=== PATIENT | male | born 1965 | race Caucasian/White ===

== ENCOUNTER 2016-11-02 10:34 | Outpatient (CLI) | payer MEDICAID | END 2016-11-02 10:35 | disposition home or self-care (01) | DX: M19.042 Primary osteoarthritis, left hand (principal) ==

== ENCOUNTER 2017-09-12 16:24 | Outpatient (CLI) | payer MEDICAID ==
--- NOTE | 2017-09-13 13:46 | XRAY Report ---
TWO VIEW CHEST: 09/13/2017 CLINICAL INDICATION: Productive cough, fever. FINDINGS: Frontal and lateral views of the chest demonstrate a normal cardiac silhouette. The lungs are clear. No effusion or pneumothorax is present. IMPRESSION: NORMAL CHEST. TD: 09/13/2017 13:46
== END 2017-09-12 16:25 | disposition home or self-care (01) ==
LOC: DI.N 16:24
PROVIDERS: ATTEND Physician Assistant Medical
DX: R05 Cough (principal)
CPT/HCPCS: 71046

== ENCOUNTER 2018-01-30 07:00 | Outpatient (CLI) | payer OTHER | END 2018-01-30 07:01 | disposition home or self-care (01) | LOC: LAB.R 07:00 | DX: Z53.9 Procedure and treatment not carried out, unspecified reason (principal) ==

== ENCOUNTER 2018-02-13 11:26 | Outpatient (CLI) | payer MEDICAID ==
[2018-02-13 19:14] LABS: BASOPHILS # (AUTO) 0.1 10^3/uL (0.0-0.1); BASOPHILS % (AUTO) 0.7 %; EOSINOPHILS % (AUTO) 0.1 %; HGB - HEMOGLOBIN 14.9 g/dL (14.0-18.0); LYMPHOCYTES # (AUTO) 1.7 10^3/uL (1.5-3.5); LYMPHOCYTES % (AUTO) 16.5 %; MEAN CORPUSCULAR HEMOGLOBIN 28.8 pg (27.0-31.0); MEAN CORPUSCULAR HGB CONC 32.2 g/dL (32.0-36.0); MEAN CORPUSCULAR VOLUME 89.5 fL (80.0-94.0); MONOCYTES # (AUTO) 0.9 10^3/uL (0.0-1.0); MONOCYTES % (AUTO) 8.7 %; NEUTROPHILS # (AUTO) 7.5 10^3/uL (1.5-6.6); PLT - PLATELET COUNT 198 10^3/uL (130-450); RED BLOOD COUNT 5.16 10^6/uL (4.70-6.10); RED CELL DISTRIBUTION WIDTH 13.7 % (12.0-15.0); WHITE BLOOD COUNT 10.1 x10^3/uL (4.8-10.8)
[2018-02-13 19:29] LABS: BILIRUBIN,URINE NEGATIVE (NEGATIVE); GLUCOSE, URINE (UA) NEGATIVE (NEGATIVE); KETONES,URINE (UA) NEGATIVE (NEGATIVE); LEUKOCYTE ESTERASE, URINE SMALL (NEGATIVE); NITRITE,URINE NEGATIVE (NEGATIVE); OCCULT BLOOD,URINE SMALL (NEGATIVE); PROTEIN,URINE NEGATIVE (NEGATIVE); UROBILINOGEN,URINE 0.2 (NORMAL) E.U./dL (NORMAL)
[2018-02-13 19:39] LABS: ALBUMIN/GLOBULIN RATIO 1.1 (1.0-2.2); BILIRUBIN,TOTAL 0.7 mg/dL (0.2-1.0); CALCIUM 9.3 mg/dL (8.5-10.3); TOTAL PROTEIN 7.6 g/dL (6.7-8.2)
[2018-02-13 19:42] LABS: CLARITY,URINE CLEAR (CLEAR)
[2018-02-13 20:09] LABS: BACTERIA,URINE None Seen /HPF (None Seen); RBC,URINE 0-5 /HPF (0-5); SQUAMOUS EPITHELIAL CELL,UR NONE SEEN (<= Few)
== END 2018-02-13 11:27 | disposition home or self-care (01) ==
LOC: LAB.N 11:26
PROVIDERS: ATTEND Nurse Practitioner
DX: R36.1 Hematospermia (principal)
CPT/HCPCS: 36415; 80053; 81001; 85025; 87086

== ENCOUNTER 2018-02-14 11:20 | Outpatient (CLI) | payer MEDICAID | END 2018-02-14 11:21 | disposition home or self-care (01) | LOC: LAB.R 11:20 | PROVIDERS: ATTEND Nurse Practitioner | DX: R36.1 Hematospermia (principal) | CPT/HCPCS: 87491; 87591 ==

== ENCOUNTER 2019-09-11 10:58 | Outpatient (CLI) | payer MEDICAID ==
--- NOTE | 2019-09-11 17:42 | XRAY Report ---
Reason: CHEST PAIN Procedure Date: 09/11/2019 Accession Number: [id number] / [id number] Procedure: XRN - Chest 2 View X-Ray CPT Code: 23846 Final Report FULL RESULT: EXAM: CHEST RADIOGRAPHY EXAM DATE: 09/11/2019 11:29 AM. CLINICAL HISTORY: Chest pain. COMPARISON: Chest radiograph from 09/12/2017. TECHNIQUE: 2 views. FINDINGS: Lungs/Pleura: No focal airspace opacity. No pleural effusion or pneumothorax. Mediastinum: Cardiomediastinal silhouette is within normal limits. Pulmonary vasculature is unremarkable. Other: None. IMPRESSION: No acute cardiopulmonary abnormality. RADIA
== END 2019-09-11 10:59 | disposition home or self-care (01) ==
LOC: DI.N 10:58
PROVIDERS: ATTEND Family Medicine
DX: R07.9 Chest pain, unspecified (principal)
CPT/HCPCS: 36415; 71046; 80053; 80061; 81599; 82553; 83721; 84443; 84484; 85025; 85379

== ENCOUNTER 2019-09-11 11:37 | Outpatient (CLI) | payer MEDICAID, OTHER ==
[2019-09-11 18:22] LABS: BASOPHILS # (AUTO) 0.1 10^3/uL (0.0-0.1); BASOPHILS % (AUTO) 1.7 %; HGB - HEMOGLOBIN 15.8 g/dL (14.0-18.0); LYMPHOCYTES # (AUTO) 1.6 10^3/uL (1.5-3.5); LYMPHOCYTES % (AUTO) 30.2 %; MEAN CORPUSCULAR HEMOGLOBIN 27.4 pg (27.0-31.0); MEAN CORPUSCULAR VOLUME 88.4 fL (80.0-94.0); MEAN PLATELET VOLUME 12.3 fL (7.4-11.4); MONOCYTES # (AUTO) 0.5 10^3/uL (0.0-1.0); MONOCYTES % (AUTO) 10.1 %; NEUTROPHILS # (AUTO) 3.1 10^3/uL (1.5-6.6); NEUTROPHILS % (AUTO) 57.8 %; PLT - PLATELET COUNT 200 10^3/uL (130-450); RED BLOOD COUNT 5.77 10^6/uL (4.70-6.10); RED CELL DISTRIBUTION WIDTH 13.4 % (12.0-15.0); WHITE BLOOD COUNT 5.3 x10^3/uL (4.8-10.8)
[2019-09-11 18:56] LABS: ALBUMIN 4.3 g/dL (3.2-5.5); ALBUMIN/GLOBULIN RATIO 1.5 (1.0-2.2); ALKALINE PHOSPHATASE 39 IU/L (42-121); ALT ALANINE AMINOTRANSFERASE 28 IU/L (10-60); AST ASPARTATE AMINOTRANSFERASE 21 IU/L (10-42); BILIRUBIN,TOTAL 0.8 mg/dL (0.2-1.0); BUN - BLOOD UREA NITROGEN 14 mg/dL (6-20); CALCIUM 8.9 mg/dL (8.5-10.3); CARBON DIOXIDE - CO2 28 mmol/L (21-32); CHLORIDE 104 mmol/L (101-111); CHOL/HDL RATIO 4.7 (<5.0); CHOLESTEROL 219 mg/dL; CREATININE 0.9 mg/dL (0.6-1.2); GFR - MDRD 87 (>89); GLUCOSE 81 mg/dL (70-100); HDL CHOLESTEROL 47 mg/dL; LDL CHOLESTEROL,CALCULATED 149 mg/dL; LDL/HDL RATIO 3.2 (<3.6); SODIUM 139 mmol/L (135-145); TOTAL PROTEIN 7.2 g/dL (6.7-8.2); VLDL CHOLESTEROL 23 mg/dL
== END 2019-09-11 23:59 | disposition home or self-care (01) ==
LOC: LAB.N 11:37
PROVIDERS: ATTEND Family Medicine
DX: R07.9 Chest pain, unspecified (principal)
CPT/HCPCS: 36415; 80053; 80061; 81599; 82553; 83721; 84443; 84484; 85025; 85379

== ENCOUNTER 2020-09-29 08:00 | Outpatient (CLI) | payer OTHER ==
[2020-09-29 11:51] LABS: BASOPHILS # (AUTO) 0.1 10^3/uL (0.0-0.1); BASOPHILS % (AUTO) 1.1 %; EOSINOPHILS % (AUTO) 0.4 %; HGB - HEMOGLOBIN 15.5 g/dL (14.0-18.0); LYMPHOCYTES # (AUTO) 1.8 10^3/uL (1.5-3.5); LYMPHOCYTES % (AUTO) 34.4 %; MEAN CORPUSCULAR HEMOGLOBIN 28.5 pg (27.0-31.0); MEAN CORPUSCULAR HGB CONC 32.2 g/dL (32.0-36.0); MEAN CORPUSCULAR VOLUME 88.6 fL (80.0-94.0); MEAN PLATELET VOLUME 11.8 fL (7.4-11.4); MONOCYTES # (AUTO) 0.5 10^3/uL (0.0-1.0); MONOCYTES % (AUTO) 9.4 %; NEUTROPHILS # (AUTO) 2.8 10^3/uL (1.5-6.6); NEUTROPHILS % (AUTO) 54.3 %; PLT - PLATELET COUNT 196 10^3/uL (130-450); RED BLOOD COUNT 5.44 10^6/uL (4.70-6.10); RED CELL DISTRIBUTION WIDTH 12.6 % (12.0-15.0); WHITE BLOOD COUNT 5.2 x10^3/uL (4.8-10.8)
[2020-09-29 13:24] LABS: ALBUMIN 4.2 g/dL (3.2-5.5); ALBUMIN/GLOBULIN RATIO 1.4 (1.0-2.2); ALKALINE PHOSPHATASE 39 IU/L (42-121); ALT ALANINE AMINOTRANSFERASE 25 IU/L (10-60); AST ASPARTATE AMINOTRANSFERASE 22 IU/L (10-42); BILIRUBIN,TOTAL 0.6 mg/dL (0.2-1.0); BUN - BLOOD UREA NITROGEN 12 mg/dL (6-20); CALCIUM 9.5 mg/dL (8.5-10.3); CARBON DIOXIDE - CO2 25 mmol/L (21-32); CHLORIDE 105 mmol/L (101-111); CHOL/HDL RATIO 4.4 (<5.0); CHOLESTEROL 239 mg/dL; GLUCOSE 93 mg/dL (70-100); HDL CHOLESTEROL 54 mg/dL; LDL CHOLESTEROL,CALCULATED 169 mg/dL; LDL/HDL RATIO 3.1 (<3.6); TOTAL PROTEIN 7.2 g/dL (6.7-8.2); VLDL CHOLESTEROL 16 mg/dL
== END 2020-09-29 23:59 | disposition home or self-care (01) ==
LOC: LAB.WCP 08:00
PROVIDERS: ATTEND Family Medicine
DX: R07.9 Chest pain, unspecified (principal); E78.5 Hyperlipidemia, unspecified; Z12.5 Encounter for screening for malignant neoplasm of prostate
CPT/HCPCS: 36415; 80053; 80061; 83721; 84153; 85025

== ENCOUNTER 2020-11-10 07:49 | Outpatient (CLI) | payer OTHER ==
--- NOTE | 2020-11-10 11:43 | CARDIAC PROCEDURE NOTE ---
DATE OF SERVICE: 11/10/2020 Physician: Jammie Hathaway MD, [facility] INDICATION: Chest pain, hyperlipidemia. CARDIAC RISK FACTORS: Hyperlipidemia, male gender. PROCEDURE: After signing informed consent, the patient underwent a Geronimo- protocol treadmill stress test. There was no cardiac imaging ordered with this test. RESTING HEART RATE: 72. PEAK HEART RATE: 148 (98% predicted maximum heart rate for age). RESTING BLOOD PRESSURE: 128/97. PEAK BLOOD PRESSURE: 153/73. The patient exercised for 7 minutes and 45 seconds on a Geronimo-protocol treadmill stress test. He achieved a peak heart rate of 148 (90% predicted maximum heart rate for age) and 9.75 METS. The patient rated his perceived exertion at 15/20 on the Jesika scale at peak. The patient had mild shortness of breath at peak, he had no chest pain during exercise. Oxygen saturation was 95-98% on room air throughout the test. RESTING EKG: Normal sinus rhythm, rare PAC, otherwise within normal limits. EKG AT PEAK: Frequent PACs and atrial trigeminy noted, one PVC seen, no ischemic ST segment or T-wave changes developed. SUMMARY: 1. Normal resting EKG. 2. Good exercise tolerance. 3. Frequent premature atrial contractions are seen with exercise, which were asymptomatic. 4. No ischemic changes seen by EKG criteria. IMPRESSION: 1. Normal stress test, evaluating for coronary disease. 2. PACs noted. 3. This patient's cardiac risk is: Low. cc: Emili Sarmiento DO TD: 11/10/2020 11:41 [facility]
== END 2020-11-10 07:50 | disposition home or self-care (01) ==
LOC: DI 07:49
PROVIDERS: ATTEND Family Medicine
DX: R07.9 Chest pain, unspecified (principal); E78.5 Hyperlipidemia, unspecified

== ENCOUNTER 2023-05-11 08:45 | Outpatient (CLI) | payer BC ==
[2023-05-11 09:21] LABS: HCT - HEMATOCRIT 45.6 % (42.0-52.0); HGB - HEMOGLOBIN 15.2 g/dL (14.0-18.0); MEAN CORPUSCULAR HEMOGLOBIN 29.5 pg (27.0-31.0); MEAN CORPUSCULAR HGB CONC 33.3 g/dL (32.0-36.0); MEAN CORPUSCULAR VOLUME 88.4 fL (80.0-94.0); RED BLOOD COUNT 5.16 10^6/uL (4.70-6.10); RED CELL DISTRIBUTION WIDTH 12.6 % (12.0-15.0); WHITE BLOOD COUNT 5.3 x10^3/uL (4.8-10.8)
[2023-05-11 09:39] LABS: ALBUMIN 4.3 g/dL (3.2-5.5); ALBUMIN/GLOBULIN RATIO 1.5 (1.0-2.2); ALKALINE PHOSPHATASE 48 IU/L (42-121); ALT ALANINE AMINOTRANSFERASE 18 IU/L (10-60); AST ASPARTATE AMINOTRANSFERASE 19 IU/L (10-42); BILIRUBIN,TOTAL 0.9 mg/dL (0.2-1.0); BUN - BLOOD UREA NITROGEN 13 mg/dL (6-20); CALCIUM 9.6 mg/dL (8.5-10.3); CARBON DIOXIDE - CO2 28 mmol/L (21-32); CHLORIDE 104 mmol/L (101-111); CHOL/HDL RATIO 4.6 (<5.0); CHOLESTEROL 203 mg/dL; CREATININE 0.9 mg/dL (0.6-1.3); GFR - MDRD 86 (>89); GLUCOSE 93 mg/dL (74-104); HDL CHOLESTEROL 44 mg/dL; LDL CHOLESTEROL,CALCULATED 139 mg/dL; LDL/HDL RATIO 3.2 (<3.6); POTASSIUM 4.1 mmol/L (3.5-4.5); SODIUM 139 mmol/L (135-145); TOTAL PROTEIN 7.1 g/dL (6.4-8.9); TRIGLYCERIDES 98 mg/dL (48-352); VLDL CHOLESTEROL 20 mg/dL
[2023-05-11 10:06] LABS: ESTIMATED AVERAGE GLUCOSE 100 mg/dL (70-100); HEMOGLOBIN A1c% 5.1 % (4.27-6.07)
== END 2023-05-11 08:46 | disposition home or self-care (01) ==
LOC: LAB 08:45
PROVIDERS: ATTEND Family Medicine
DX: E78.5 Hyperlipidemia, unspecified (principal); E29.1 Testicular hypofunction; Z13.6 Encounter for screening for cardiovascular disorders
CPT/HCPCS: 36415; 80053; 80061; 83036; 83721; 85027

== ENCOUNTER 2023-05-22 14:08 | Outpatient (CLI) | payer BC ==
--- NOTE | 2023-05-22 16:33 | XRAY Report ---
PROCEDURE: Chest 2 View X-Ray INDICATIONS: COUGH TECHNIQUE: 2 views of the chest were acquired. COMPARISON: Chest x-ray 09/11/2019 FINDINGS: Surgical changes and devices: None. Lungs and pleura: No pleural effusions or pneumothorax. Lungs are clear. Mediastinum: Mediastinal contours appear normal. Heart size is normal. Bones and chest wall: No suspicious bony lesions. Overlying soft tissues appear unremarkable. IMPRESSION: No acute cardiopulmonary process. Reviewed by: Alexia Lay MD on 05/22/2023 4:32 PM PDT Approved by: Alexia Lay MD on 05/22/2023 4:32 PM PDT Station ID: [id number]
== END 2023-05-22 14:09 | disposition home or self-care (01) ==
LOC: DI 14:08
PROVIDERS: ATTEND Specialist
DX: R05.9 Cough, unspecified (principal)

== ENCOUNTER 2023-06-15 08:17 | Outpatient (CLI) | payer BC ==
[2023-06-15 08:50] LABS: CREATININE 0.9 mg/dL (0.6-1.3)
== END 2023-06-15 08:18 | disposition home or self-care (01) ==
LOC: LAB 08:17
PROVIDERS: ATTEND Nurse Practitioner
DX: R05.3 Chronic cough (principal)
CPT/HCPCS: 36415; 82565

== ENCOUNTER 2023-06-19 12:26 | Outpatient (CLI) | payer BC ==
[2023-06-19] MEDS ORDERED: iohexoL-300 100 ML VIAL IVP ONE (13:28)
--- NOTE | 2023-06-20 11:57 | CT Report ---
PROCEDURE: CHEST W INDICATIONS: PERSISTENT COUGH CONTRAST: 100ml omni 300 TECHNIQUE: After the administration of intravenous contrast, 1 mm axial images were acquired from the pulmonary apices through the posterior costophrenic angles. Axial 5 mm soft tissue kernel reconstructions were performed as well as 8 mm axial MIP and coronal and sagittal 5 mm reformations. For radiation dose reduction, the following was used: automated exposure control, adjustment of mA and/or kV according to patient size. COMPARISON: Chest x-ray, 05/22/2023. FINDINGS: Image quality: Excellent. Lungs and pleura: No consolidation. Lingula and left lower lobe atelectasis. No pleural effusions. No pneumothorax. No suspicious pulmonary nodules which require follow up. Mediastinum: Heart size is normal. No pericardial effusion. No large vessel abnormality. No mediastin al adenopathy by size criteria. Chest wall and lower neck: Thyroid is unremarkable. No axillary or supraclavicular adenopathy by size . Bones: No aggressive osseous abnormality. Upper Abdomen: Mild hepatic steatosis. There are 2 simple appearing cysts in the superior pole of the right kidney. Bilateral adrenal thickening. IMPRESSION: 1. No acute cardiopulmonary process. If clinical symptoms persist, consider a high-resolution chest C T (HRCT). Reviewed by: Shayla Frazier MD on 06/20/2023 11:55 AM [facility] Approved by: Shayla Frazier MD on 06/20/2023 11:55 AM PST Station ID: [id number]
== END 2023-06-19 12:27 | disposition home or self-care (01) ==
LOC: DI 12:26
PROVIDERS: ATTEND Nurse Practitioner
DX: R05.3 Chronic cough (principal)
CPT/HCPCS: 71260; Q9967

== ENCOUNTER 2023-08-01 17:07 | Outpatient (CLI) | payer BC | END 2023-08-01 17:08 | disposition home or self-care (01) | LOC: RT 17:07 | PROVIDERS: ATTEND Registered Nurse | DX: F90.0 Attention-deficit hyperactivity disorder, predominantly inattentive type (principal) | CPT/HCPCS: 93005 ==